=== PATIENT | female | born 1990 ===

== ENCOUNTER 2022-05-09 08:15 | Outpatient (CLI) | payer OTHER | END 2022-05-09 09:27 | disposition home or self-care (01) | LOC: PRENATAL 08:15 | DX: O36.80X0 Pregnancy with inconclusive fetal viability, not applicable or unspecified (principal); Z36.0 Encounter for antenatal screening for chromosomal anomalies; Z3A.11 11 weeks gestation of pregnancy ==

== ENCOUNTER 2022-07-07 08:18 | Outpatient (CLI) | payer OTHER | END 2022-07-07 10:06 | disposition home or self-care (01) | LOC: PRENATAL 08:18 | PROVIDERS: ATTEND Obstetrics & Gynecology Maternal & Fetal Medicine | DX: O35.9XX0 Maternal care for (suspected) fetal abnormality and damage, unspecified, not applicable or unspecified (principal); O35.3XX0 Maternal care for (suspected) damage to fetus from viral disease in mother, not applicable or unspecified; Z3A.20 20 weeks gestation of pregnancy ==